=== PATIENT | male | born 1970 | race Caucasian/White ===

== ENCOUNTER → 2016-06-26 | Outpatient (CLI) | payer OTHER ==
[~2016-06-26] MED LIST: ACETAMINOPHEN325 M1; AMBIEN 10 MG TA10 MG PO; CARISOPRODOL 3350 MG PO; CENTRUM SILVER1 EAC2 PO; CENTRUM TABLET1 TAB; CO Q-10100 MG; COZAAR 50 MG TA50 M2 PO; DARVOCET-N 1001 EAC1; FENTANYL PA25 MCG/HR TP; FLEXERIL PO; HYDROCHLOROTHIA25 M2 PO; HYDROCODON-ACE1 EAC5 PO; HYDROCODON-ACE1 EAC7 PO; HYZAAR 100-251 EACH PO; LUMIGAN2.5 ML; OMEGA 3 1,0001 EACH PO; PERCOCET 5-3251 EACH; PRILOSEC20 MG PO; TIMOLOL; TIMOLOL MA0.25 %/5 M OP; TRAMADOL 50 MG50 MG PO; VALIUM5 MG PO; VITAMIN B-12100 MC1; ZOFRAN 4 MG ORAL4 MG PO; ZOFRAN ODT4 MG PO
== END ==
LOC: CAT 15:24
DX: R10.9 Unspecified abdominal pain (principal); R11.0 Nausea

== ENCOUNTER 2016-07-10 18:13 | Inpatient (IN) | payer OTHER ==
[~2016-07-10] VITALS: Ht 162.6 cm; Wt 135.2 kg
--- NOTE | ~2016-07-10 | P ---
[facility] [place] [address] PROCEDURE REPORT Name: SINDY TAN Room #: 308-P [facility] IN M.R.#: [id number] Admission: 07/11/16 Attend Phys: Yogesh Mendez DO Discharge: 07/13/16 Date of : 68 Report #: [id number] THIS REPORT FOR: //name// CC: Yogesh Marrero DATE OF SERVICE: 07/13/2016 PROCEDURES: Upper endoscopy and colonoscopy at [facility] 07/13/2016. INDICATIONS FOR PROCEDURE: A 46-year-old obese male who presents to the hospital with 3-4 weeks of nausea, vomiting, abdominal pain and diarrhea. CT was unremarkable. Stool studies were unrevealing and upper endoscopy and colonoscopy were recommended. ANESTHESIA: Monitored anesthesia care. Please see anesthesiologist's report for medications given during procedure and propofol was used for sedation. DESCRIPTION OF PROCEDURE: The patient was placed in left lateral decubitus position on the operating table and sedation was given. Sedation was adequate. No complications were noted. The upper adult Fujinon endoscope was introduced through the mouth into the esophagus and the stomach and down to the second portion of the duodenum and then carefully withdrawn. With inspection, the duodenum was normal. Stomach was normal in retroflexion. The esophagus was normal. Biopsies were taken from the second portion of the duodenum to assess for celiac disease. The procedure was then ended. The patient was turned and the adult Fujinon colonic endoscope was introduced through the anus and we moved through the entire colon. The entire colon was inspected. There were no mucosal abnormalities. There was 1 polyp approximately 2 x 3 mm in the ascending colon. This was biopsied. Random colon biopsies were taken for microscopic colitis. The colonoscope was withdrawn slowly with careful inspection of the colonic mucosa. There were internal hemorrhoids in the rectum and the procedure was then ended. Biopsies were taken for microscopic colitis. RECOMMENDATIONS: To await the biopsy results. Eat a high-fiber diet 25 grams a day. Continue hyoscyamine as needed. Recommend a trial of Bentyl as needed. Repeat colonoscopy in 5 years for surveillance purposes. We will advance his diet and the patient can be discharged from [facility]. He can follow up in our office. <ELECTRONICALLY SIGNED> By: Shahzad Gill MD 07/14/16 0908 [id number] 1708 Shahzad Gill MD /nt
--- NOTE | ~2016-07-10 | S ---
[facility] [place] [address] SURGICAL PATH RPT PROCEDURE Name: SINDY MCELROY Room #: 308-P DIS IN M.R.#: [id number] Admission: 07/11/16 Date of : 68 Discharge: 07/13/16 Report #: [id number] Path Case #: [id number] PATHOLOGY REPORT COLLECTION DATE: 07/13/2016 RECEIVED DATE: 07/15/2016 SUBMITTING PHYS: Dr. Shahzad Gill OTHER PHYS: Dr. Yogesh Marrero SPECIMEN(S) RECEIVED: A.Small bowel biopsies B.Bxs polyp ascending colon C.Random colon bxs * * * * * * * * * * * * FINAL DIAGNOSIS: A. Small bowel, endoscopic biopsy: - No diagnostic abnormalities present. B. Polyp, ascending colon, endoscopic biopsy: - Tubular adenoma. - Negative for high-grade dysplasia. C. Large intestine, random colon, endoscopic biopsy: - Mild non-specific changes (please see comment). COMMENT: Examination shows an occasional focus of cryptitis with a rare eosinophil. The lamina propria cellularity is mixed and is comprised of lymphocytes, abundant plasma cells, as well as a few eosinophils. Surface epithelial inflammation, ulceration, granulomata, viral inclusions, or parasitic organisms are not identified. Overall, the findings are non-specific, and may be due to an acute self-limited episode of colitis, or medication induced colitis. There is no dysplasia or malignancy present. There are no architectural abnormalities to suggest a chronic process. Please correlate clinically and follow-up as indicated. (IUV:mgr; d/t: 07/16/16) PATHOLOGIST: Charo Carnes M.D. REPORT ELECTRONICALLY SIGNED BY: Charo Carnes M.D. DATE/TIME: 07/16/2016 16:30 * * * * * * * * * * * * GROSS PATHOLOGY: A. Received in formalin labeled "Sindy Mcelroy, small bowel BX's," are 2 segments of muñiz soft tissue measuring 0.7 x 0.2 x 0.[address] [address] SURGICAL PATH RPT PROCEDURE Name: SINDY MCELROY Room #: 308-P [facility] IN M.R.#: [id number] Admission: 07/11/16 Date of : 68 Discharge: 07/13/16 Report #: [id number] Path Case #: [id number] aggregate dimensions and ranging from 0.2 to 0.5 cm in maximum dimension. The specimen is submitted entirely in cassette A1. B. Received in formalin labeled " Sindy Mcelroy BX's polyp ascending colon," is a segment of muñiz soft tissue measuring 0.2 x 0.1 x 0.1 cm in maximum dimension. The specimen is submitted entirely in cassette B1. C. Received in formalin labeled " Sindy Mcelroy Bx's random colon," are 10 segments of muñiz soft tissue measuring 2.3 x 0.2 x 0.2 cm in aggregate dimensions and ranging from 0.1 to 0.5 cm in maximum dimension. The specimen is submitted entirely in cassette C1. ([place]; 07/15/2016) CLINICAL HISTORY: Diarrhea/abdominal pain INITIAL CPT CODE(S): A; 03606 B; 16341 C; 71586 Professional services performed by [facility] at [facility] [address], [place] [address] Technical services performed by [facility] at [address] [place] [address], [address], [place] [address]. [facility] [address] [place] [address] PHONE: [phone] DIRECTOR: Daniel Leon M.D. * * * END OF REPORT * * *
[2016-07-10 18:22] VITALS: BP 152/87
[2016-07-10 18:59] LABS: ABSOLUTE NEUTROPHILS 9.9 thou/uL (1.4-8.2); BASOPHILS 1.5 % (0.0-2.0); EOSINOPHILS 3.6 % (0.0-3.0); HEMATOCRIT 41.4 % (42.0-52.0); HEMOGLOBIN 14.4 gm/dL (14.0-18.0); LYMPHOCYTES 20.1 % (24.0-44.0); MANUAL DIFF NO; MCH 34.1 pg (26.0-34.0); MCHC 34.8 g/dL (28.0-37.0); MCV 98.1 fL (80.0-100.0); MONOCYTES 7.4 % (1.0-8.0); PLATELET COUNT 274 thou/uL (150-400); POLYS 67.4 % (36.0-66.0); RBC 4.22 mil/uL (4.50-6.00); RDW 13.3 % (10.5-14.5); WBC 14.7 thou/uL (4.0-11.0)
[2016-07-10 19:02] LABS: CALCIUM 8.7 mg/dL (8.5-10.1); CREATININE 0.9 mg/dL (0.7-1.3); POTASSIUM 3.5 mmol/L (3.5-5.1)
[2016-07-10 19:07] LABS: ALBUMIN 3.6 g/dL (3.4-5.0); TOTAL BILIRUBIN 0.3 mg/dL (<0.1-1.0); TOTAL PROTEIN 7.1 g/dL (6.4-8.2)
[2016-07-10] MEDS ORDERED: ZANAFLEX4 MG PO (19:15)
[2016-07-10] MEDS ORDERED: LASIX 40 MG TAB40 M2 PO (19:16)
[2016-07-10] MEDS ORDERED: FLEXERIL PO (19:16)
[2016-07-10] MEDS ORDERED: CIPRO500 MG PO (19:16)
[2016-07-10] MEDS ORDERED: KLOR-CON 1010 MEQ PO (19:16)
[2016-07-10] MEDS ORDERED: MODAFINIL200 MG PO (19:17)
[2016-07-10] MEDS ORDERED: CYMBALTA20 MG PO (19:17)
[2016-07-10] MEDS ORDERED: HYOSCYAMINE0.125 MG PO (19:18)
[2016-07-10] MEDS ORDERED: TRAMADOL 50 MG50 MG PO (19:18)
[2016-07-10] MEDS ORDERED: [UNRECOGNIZED DRUG - OTHER] PO (19:20)
[2016-07-10] MEDS ORDERED: HYPROST1 EACH PO (19:20)
[2016-07-10] MEDS ORDERED: ACAI WEIGHT CO1 EACH PO (19:21)
[2016-07-10] MEDS ORDERED: [UNRECOGNIZED DRUG - OTHER] PO (19:21)
[2016-07-10] MEDS ORDERED: PROSTATE HEALT1 EAC1 PO (19:22)
[2016-07-10 21:08] VITALS: BP 90/59
[2016-07-11 03:13] VITALS: BP 139/83
[2016-07-11 05:15] LABS: HEMATOCRIT 39.9 % (42.0-52.0); MCH 34.9 pg (26.0-34.0); MCV 99.5 fL (80.0-100.0); RBC 4.01 mil/uL (4.50-6.00); RDW 13.7 % (10.5-14.5); WBC 12.3 thou/uL (4.0-11.0)
[2016-07-11 05:43] LABS: ALBUMIN 3.3 g/dL (3.4-5.0); CALCIUM 8.4 mg/dL (8.5-10.1); CREATININE 0.9 mg/dL (0.7-1.3); POTASSIUM 3.7 mmol/L (3.5-5.1); TOTAL BILIRUBIN 0.3 mg/dL (<0.1-1.0); TOTAL PROTEIN 6.4 g/dL (6.4-8.2)
[2016-07-11 08:34] VITALS: BP 118/67
[2016-07-11 16:14] VITALS: BP 134/64
[2016-07-11 20:00] VITALS: BP 124/64
[2016-07-12 04:00] VITALS: BP 134/77
[2016-07-12 06:26] LABS: ABSOLUTE NEUTROPHILS 8.5 thou/uL (1.4-8.2); BASOPHILS 0.6 % (0.0-2.0); HEMATOCRIT 41.6 % (42.0-52.0); HEMOGLOBIN 14.3 gm/dL (14.0-18.0); LYMPHOCYTES 15.7 % (24.0-44.0); MCH 34.3 pg (26.0-34.0); MCHC 34.3 g/dL (28.0-37.0); MCV 99.8 fL (80.0-100.0); PLATELET COUNT 237 thou/uL (150-400); POLYS 73.7 % (36.0-66.0); RBC 4.17 mil/uL (4.50-6.00); RDW 13.4 % (10.5-14.5); WBC 11.5 thou/uL (4.0-11.0)
[2016-07-12 06:35] LABS: MANUAL DIFF NO
[2016-07-12 06:36] LABS: CREATININE 0.7 mg/dL (0.7-1.3); POTASSIUM 3.6 mmol/L (3.5-5.1)
[2016-07-12 11:30] VITALS: BP 183/114
[2016-07-12 16:00] VITALS: BP 177/96
[2016-07-12 20:30] VITALS: BP 141/96
[2016-07-13 04:30] VITALS: BP 139/97
[2016-07-13 08:18] VITALS: BP 135/90
[2016-07-13] MEDS ORDERED: BENTYL 10 MG CA10 M1 PO (11:49)
[2016-07-13 12:13] VITALS: BP 135/90
[2016-07-13 13:34] VITALS: BP 135/90
== END 2016-07-13 13:33 | disposition home or self-care (01) | DRG 872 ==
LOC: ER 18:13 → EROBS 19:56 → 3N 19:56
PROVIDERS: Emergency Medicine; Family Medicine; Nurse Practitioner Family
PROC: 0DBK8ZX Excision of Ascending Colon, Via Natural or Artificial Opening Endoscopic, Diagnostic (ICD-10-PCS; principal; 2016-07-13)
PROC: 0DB98ZX Excision of Duodenum, Via Natural or Artificial Opening Endoscopic, Diagnostic (ICD-10-PCS; principal; 2016-07-13)
PROC: 0DBE8ZX Excision of Large Intestine, Via Natural or Artificial Opening Endoscopic, Diagnostic (ICD-10-PCS; principal; 2016-07-13)
DX: A41.9 Sepsis, unspecified organism (principal); Z68.43 Body mass index [BMI] 50.0-59.9, adult; A04.9 Bacterial intestinal infection, unspecified; K52.9 Noninfective gastroenteritis and colitis, unspecified; D12.2 Benign neoplasm of ascending colon; K64.8 Other hemorrhoids; Z96.653 Presence of artificial knee joint, bilateral; H54.0 Blindness, both eyes; E66.9 Obesity, unspecified; F17.210 Nicotine dependence, cigarettes, uncomplicated; I10 Essential (primary) hypertension; G56.03 Carpal tunnel syndrome, bilateral upper limbs; D72.829 Elevated white blood cell count, unspecified; Z71.6 Tobacco abuse counseling; Z87.11 Personal history of peptic ulcer disease; Z98.1 Arthrodesis status
CPT/HCPCS: 10094; 62110; 62900

== ENCOUNTER 2016-10-19 12:52 | Inpatient (IN) | payer OTHER ==
[~2016-10-19] VITALS: Ht 162.6 cm; Wt 131.5 kg
[~2016-10-19 12:52] MED LIST changes: +ACAI WEIGHT CO1 EACH PO; +BENTYL 10 MG CA10 M1 PO; +CIPRO500 MG PO; +CYMBALTA20 MG PO; +HYOSCYAMINE0.125 MG PO; +HYPROST1 EACH PO; +KLOR-CON 1010 MEQ PO; +LASIX 40 MG TAB40 M2 PO; +MODAFINIL200 MG PO; +PROSTATE HEALT1 EAC1 PO; +ZANAFLEX4 MG PO; +[UNRECOGNIZED DRUG - OTHER] PO; +[UNRECOGNIZED DRUG - OTHER] PO
[2016-10-19 12:57] VITALS: BP 148/73
[2016-10-19] MEDS ORDERED: HYDROCODONE-APA1 TA1 PO (13:19)
[2016-10-19 13:53] LABS: HEMATOCRIT 41.3 % (42.0-52.0); HEMOGLOBIN 14.3 gm/dL (14.0-18.0); MANUAL DIFF YES; MCH 34.3 pg (26.0-34.0); MCHC 34.6 g/dL (28.0-37.0); MCV 99.2 fL (80.0-100.0); PLATELET COUNT 254 thou/uL (150-400); RBC 4.16 mil/uL (4.50-6.00); RDW 13.8 % (10.5-14.5)
[2016-10-19 14:03] LABS: CALCIUM 8.8 mg/dL (8.5-10.1); POTASSIUM 3.9 mmol/L (3.5-5.1)
[2016-10-19 14:09] LABS: ALBUMIN 3.4 g/dL (3.4-5.0); TOTAL BILIRUBIN 0.4 mg/dL (<0.1-1.0)
[2016-10-19 14:22] LABS: ABSOLUTE NEUTROPHILS 18.3 thou/uL (1.4-8.2); TOTAL CELL COUNT 100
[2016-10-19 15:05] VITALS: BP 123/57
[2016-10-19 17:17] VITALS: BP 141/75
[2016-10-19 20:00] VITALS: BP 151/71
[2016-10-20 03:54] VITALS: BP 134/70
[2016-10-20 05:34] LABS: ABSOLUTE NEUTROPHILS 13.1 thou/uL (1.4-8.2); BASOPHILS 0.4 % (0.0-2.0); EOSINOPHILS 1.2 % (0.0-3.0); HEMATOCRIT 38.6 % (42.0-52.0); LYMPHOCYTES 13.7 % (24.0-44.0); MANUAL DIFF NO; MCH 33.9 pg (26.0-34.0); MCHC 33.6 g/dL (28.0-37.0); MCV 100.9 fL (80.0-100.0); MONOCYTES 7.6 % (1.0-8.0); PLATELET COUNT 228 thou/uL (150-400); POLYS 77.1 % (36.0-66.0); RBC 3.82 mil/uL (4.50-6.00); RDW 13.8 % (10.5-14.5); WBC 17.1 thou/uL (4.0-11.0)
[2016-10-20 05:44] LABS: CALCIUM 8.2 mg/dL (8.5-10.1); CREATININE 0.7 mg/dL (0.7-1.3); POTASSIUM 3.8 mmol/L (3.5-5.1)
[2016-10-20 09:00] VITALS: BP 157/102
[2016-10-20 16:34] VITALS: BP 111/57
[2016-10-20 20:46] VITALS: BP 132/71
[2016-10-21 07:35] VITALS: BP 164/113
[2016-10-21 09:44] LABS: ABSOLUTE NEUTROPHILS 11.5 thou/uL (1.4-8.2); BASOPHILS 1.1 % (0.0-2.0); EOSINOPHILS 1.4 % (0.0-3.0); HEMOGLOBIN 13.7 gm/dL (14.0-18.0); LYMPHOCYTES 13.4 % (24.0-44.0); MCH 34.7 pg (26.0-34.0); MCHC 34.2 g/dL (28.0-37.0); MCV 101.3 fL (80.0-100.0); MONOCYTES 5.4 % (1.0-8.0); PLATELET COUNT 249 thou/uL (150-400); POLYS 78.7 % (36.0-66.0); RBC 3.95 mil/uL (4.50-6.00); RDW 13.8 % (10.5-14.5); WBC 14.6 thou/uL (4.0-11.0)
[2016-10-21 09:46] LABS: MANUAL DIFF NO
[2016-10-21 09:53] LABS: CREATININE 0.8 mg/dL (0.7-1.3); POTASSIUM 4.2 mmol/L (3.5-5.1)
[2016-10-21 16:00] VITALS: BP 153/99
[2016-10-21 18:55] VITALS: BP 121/65
[2016-10-22 04:02] VITALS: BP 179/90
[2016-10-22 07:23] VITALS: BP 157/90
[2016-10-22 09:31] LABS: ABSOLUTE NEUTROPHILS 9.5 thou/uL (1.4-8.2); BASOPHILS 1.3 % (0.0-2.0); EOSINOPHILS 1.7 % (0.0-3.0); LYMPHOCYTES 13.9 % (24.0-44.0); MCHC 33.4 g/dL (28.0-37.0); MCV 101.7 fL (80.0-100.0); MONOCYTES 3.9 % (1.0-8.0); PLATELET COUNT 280 thou/uL (150-400); POLYS 79.2 % (36.0-66.0); RBC 4.13 mil/uL (4.50-6.00); RDW 13.4 % (10.5-14.5); WBC 11.9 thou/uL (4.0-11.0)
[2016-10-22 09:34] LABS: MANUAL DIFF NO
[2016-10-22 15:58] VITALS: BP 135/74
[2016-10-22 20:03] VITALS: BP 148/88
[2016-10-23 04:00] VITALS: BP 130/71
[2016-10-23 07:20] VITALS: BP 136/83
[2016-10-23] MEDS ORDERED: KEFLEX500 MG PO (11:58)
[2016-10-23 13:24] VITALS: BP 136/83
== END 2016-10-23 15:05 | disposition home or self-care (01) | DRG 871 ==
LOC: ER 12:52 → EROBS 15:05 → 4N 15:05 → ENTRNSPT 10-23 14:52 → EDTRNSPTSTS 10-23 14:55 → 4N 10-23 15:05
PROVIDERS: Family Medicine; Physician Assistant
DX: A41.9 Sepsis, unspecified organism (principal); N17.0 Acute kidney failure with tubular necrosis; L03.115 Cellulitis of right lower limb; I10 Essential (primary) hypertension; H54.8 Legal blindness, as defined in USA; G89.29 Other chronic pain; M54.9 Dorsalgia, unspecified; F17.210 Nicotine dependence, cigarettes, uncomplicated; Z96.653 Presence of artificial knee joint, bilateral; Z98.1 Arthrodesis status; Z79.899 Other long term (current) drug therapy
CPT/HCPCS: 10091

== ENCOUNTER 2016-11-01 05:53 | Inpatient (IN) | payer OTHER ==
[~2016-11-01] VITALS: Ht 162.6 cm; Wt 132.0 kg
--- NOTE | ~2016-11-01 | HC ---
[facility] [place] [address] CONSULTATION Name: SINDY TAN Room #: 306-P [facility] IN .R.#: [id number] Admission: 11/01/16 Attend Phys: Rick Coronado MD Discharge: Date of : 68 Report #: [id number] THIS REPORT FOR: //name// CC: Rick Marrero DATE OF SERVICE: 11/01/2016 REASON FOR CONSULTATION: I was asked to evaluate concerning right lower extremity cellulitis that has relapsed. HISTORY OF PRESENT ILLNESS: The patient is a 46-year-old with underlying hypertension, peripheral edema, legally blind was diagnosed with right lower extremity cellulitis on 10/19/2016. After a 4-day hospital stay, he was discharged on cephalexin. He finished the course of treatment earlier this week. Now with acute onset of worsening with increased pain, swelling and tenderness. No fever, chills or sweats. No nausea, vomiting, diarrhea, dysuria or frequency, brought back in to the hospital today for further evaluation. ALLERGIES: None. MEDICATIONS: Now include Zosyn and vancomycin. Other medications as noted on his MAR. PAST MEDICAL HISTORY: Blind, esophagitis, gastric ulcer, hypertension, carpal tunnel syndrome, status post surgery, lumbar stenosis, cataract surgery, bilateral total knee arthroplasties, pseudotumor cerebri, lumbar fusion. FAMILY HISTORY: Cancer, diabetes. SOCIAL HISTORY: Cigarette smoker, occasional alcohol. REVIEW OF SYSTEMS: Negative other than what is described above. PHYSICAL EXAMINATION: VITAL SIGNS: Afebrile, hemodynamically stable. GENERAL: He is alert, cooperative, pleasant, obese, blind. EXTREMITIES: cellulitis involving the right lower extremity from ankle to proximal calf. Exquisitely tender. No ulcerations. Tinea pedis. Pulses were adequate in his feet. Has 2+ lower extremity edema on the right, 1+ on the left. HEENT: Unremarkable other than being blind. NECK: Supple. LUNGS: Clear. HEART: Regular, without murmur. ABDOMEN: Obese, soft, nontender, no hepatosplenomegaly or mass. [facility] [address] [place] [address] CONSULTATION Name: SINDY TAN Room #: 306-P [facility] IN ..#: [id number] Admission: 11/01/16 Attend Phys: Rick Coronado MD Discharge: Date of : 68 Report #: [id number] LABORATORY STUDIES: Lactate 1.1, sodium 140, potassium 4.4, bicarbonate 31, creatinine 0.9. Hemoglobin 13.5, white count 21.9, platelet count 230,000. IMPRESSION: Relapse of right lower extremity cellulitis. I still suspect streptococcal infection. He has tinea pedis. He has peripheral edema that contributes. Would recommend ceftriaxone. Leg elevation. Treat tinea pedis. Once under reasonable control, we will arrange outpatient therapy. By: 1450 36 Cal Geronimo MD /jaiden
[~2016-11-01 05:53] MED LIST changes: +HYDROCODONE-APA1 TA1 PO; +KEFLEX500 MG PO
[2016-11-01 05:54] VITALS: BP 163/97
[2016-11-01 06:33] LABS: HEMATOCRIT 40.2 % (42.0-52.0); HEMOGLOBIN 13.5 gm/dL (14.0-18.0); MCH 33.9 pg (26.0-34.0); MCHC 33.6 g/dL (28.0-37.0); MCV 100.8 fL (80.0-100.0); RBC 3.98 mil/uL (4.50-6.00); RDW 13.3 % (10.5-14.5); WBC 21.9 thou/uL (4.0-11.0)
[2016-11-01 06:53] LABS: CALCIUM 9.2 mg/dL (8.5-10.1); CREATININE 0.9 mg/dL (0.7-1.3); POTASSIUM 4.4 mmol/L (3.5-5.1)
[2016-11-01 08:00] VITALS: BP 151/94
[2016-11-01 08:30] VITALS: BP 147/96
[2016-11-01] MEDS ORDERED: VALSARTAN-HCTZ1 EAC3 PO (08:59)
[2016-11-01 09:06] VITALS: BP 153/86
[2016-11-01 16:00] VITALS: BP 167/100
[2016-11-01 20:00] VITALS: BP 149/88
[2016-11-02 04:00] VITALS: BP 157/95
[2016-11-02 08:00] VITALS: BP 173/107
[2016-11-02 08:37] LABS: HEMATOCRIT 41.9 % (42.0-52.0); HEMOGLOBIN 14.1 gm/dL (14.0-18.0); MCHC 33.7 g/dL (28.0-37.0); MCV 100.9 fL (80.0-100.0); RBC 4.16 mil/uL (4.50-6.00); RDW 13.5 % (10.5-14.5); WBC 12.6 thou/uL (4.0-11.0)
[2016-11-02 08:44] LABS: CALCIUM 9.5 mg/dL (8.5-10.1); CREATININE 0.8 mg/dL (0.7-1.3); POTASSIUM 3.9 mmol/L (3.5-5.1)
[2016-11-02 16:00] VITALS: BP 155/94
[2016-11-02 20:10] VITALS: BP 166/92
[2016-11-03 04:15] VITALS: BP 159/97
[2016-11-03 08:00] VITALS: BP 159/97
[2016-11-03 09:44] LABS: HEMATOCRIT 40.5 % (42.0-52.0); HEMOGLOBIN 13.9 gm/dL (14.0-18.0); MCH 34.8 pg (26.0-34.0); MCHC 34.4 g/dL (28.0-37.0); MCV 101.1 fL (80.0-100.0); RBC 4.01 mil/uL (4.50-6.00); RDW 13.8 % (10.5-14.5); WBC 10.8 thou/uL (4.0-11.0)
[2016-11-03 09:55] LABS: CREATININE 0.9 mg/dL (0.7-1.3); POTASSIUM 3.5 mmol/L (3.5-5.1)
[2016-11-03 16:00] VITALS: BP 154/92
[2016-11-03 19:40] VITALS: BP 140/95
[2016-11-04 04:20] VITALS: BP 135/57
[2016-11-04 07:26] VITALS: BP 149/93
[2016-11-04 14:07] VITALS: BP 149/93
[2016-11-04 15:02] VITALS: BP 149/93
[2016-11-04 16:00] VITALS: BP 149/93
== END 2016-11-04 16:52 | disposition home or self-care (01) | DRG 872 ==
LOC: ER 05:53 → EROBS 07:04 → 4S 07:04 → 3N 15:19 → ENTRNSPT 11-04 16:11 → 3N 11-04 16:52
PROVIDERS: Emergency Medicine; Internal Medicine
DX: A41.9 Sepsis, unspecified organism (principal); L03.115 Cellulitis of right lower limb; Z96.653 Presence of artificial knee joint, bilateral; I10 Essential (primary) hypertension; F17.210 Nicotine dependence, cigarettes, uncomplicated; H54.8 Legal blindness, as defined in USA; I89.0 Lymphedema, not elsewhere classified; Z98.1 Arthrodesis status; Z79.899 Other long term (current) drug therapy; Z80.9 Family history of malignant neoplasm, unspecified; Z83.3 Family history of diabetes mellitus; Z98.49 Cataract extraction status, unspecified eye
CPT/HCPCS: 10096

== ENCOUNTER → 2016-11-05 | Outpatient (CLI) | payer OTHER ==
[~2016-11-05] VITALS: Ht 162.6 cm; Wt 132.0 kg
[~2016-11-05] MED LIST changes: +VALSARTAN-HCTZ1 EAC3 PO
[2016-11-05 11:26] VITALS: BP 150/95
== END ==
LOC: OPONC 06:25
DX: L03.115 Cellulitis of right lower limb (principal); A41.9 Sepsis, unspecified organism
CPT/HCPCS: 95000

== ENCOUNTER → 2016-11-06 | Outpatient (CLI) | payer OTHER ==
[2016-11-06 10:10] VITALS: BP 145/85
== END ==
LOC: OPONC 11-05 12:23
DX: A41.9 Sepsis, unspecified organism (principal); L03.115 Cellulitis of right lower limb
CPT/HCPCS: 95000

== ENCOUNTER → 2016-11-07 | Outpatient (CLI) | payer OTHER ==
[2016-11-07 10:15] VITALS: BP 132/87
== END ==
LOC: OPONC 06:25
DX: A41.9 Sepsis, unspecified organism (principal); L03.115 Cellulitis of right lower limb
CPT/HCPCS: 95000

== ENCOUNTER → 2016-11-08 | Outpatient (CLI) | payer OTHER ==
[2016-11-08 10:12] VITALS: BP 151/89
== END ==
LOC: OPONC 08:54
DX: L03.115 Cellulitis of right lower limb (principal)
CPT/HCPCS: 95000

== ENCOUNTER 2016-11-14 16:51 | Inpatient (IN) | payer OTHER ==
[~2016-11-14] VITALS: Ht 162.6 cm; Wt 137.0 kg
--- NOTE | ~2016-11-14 | H ---
[facility] [place] [address] HISTORY AND PHYSICAL Name: SINDY TAN Room #: 404-P ADM IN M.R.#: [id number] Admission: 11/14/16 Attend Phys: Cal Geronimo MD Discharge: Date of : 68 Report #: [id number] THIS REPORT FOR: //name// CC: Cal Marrero DATE OF SERVICE: 11/14/2016 REASON FOR ADMISSION: Recurrent cellulitis with lymphangitis. HISTORY OF PRESENT ILLNESS: The patient is a 46-year-old with hypertension and chronic peripheral edema who was diagnosed on 11/01/2016, with cellulitis and lymphangitis. Prior to this, he was hospitalized with the same issue on 10/19/2016. All involving the right lower extremity. I treated him with ceftriaxone through the end of last week, then switched to cephalexin. He went back to work a couple of days ago and noticed increased pain and swelling in his leg. He presents to the outpatient clinic where he had chills, temperature up to 102.5 degrees, and he was tachycardic. His right leg had erythema and swelling with tenderness up into his groin. ALLERGIES: None. MEDICATIONS: As noted on his MAR, now back on ceftriaxone. PAST MEDICAL HISTORY: He is blind. He has had esophagitis, gastric ulcer, hypertension, carpal tunnel syndrome, lumbar stenosis, cataract surgery, bilateral total knee arthroplasties, pseudotumor cerebri, and lumbar fusion. FAMILY HISTORY: Cancer and diabetes. SOCIAL HISTORY: He is a smoker of cigarettes. Occasional alcohol intake. REVIEW OF SYSTEMS: No GI, cardiopulmonary, or complaints. PHYSICAL EXAMINATION: VITAL SIGNS: Temperature 102.5 degrees, heart rate 107, and blood pressure 136/80. GENERAL: He was flushed, alert and cooperative. HEENT: Unremarkable other than being blind. CHEST: Clear. HEART: Regular. ABDOMEN: Soft and nontender. He is obese. EXTREMITIES: Right lower extremity had cellulitis from the ankle to the proximal calf along with tenderness in his medial thigh up to his groin. LABORATORY STUDIES: Hemoglobin 13.4, white count 20.9, platelet count 249,000, [address] [address] HISTORY AND PHYSICAL Name: SINDY TAN Room #: 404-P [facility] IN .R.#: [id number] Admission: 11/14/16 Attend Phys: Cal Geronimo MD Discharge: Date of : 68 Report #: [id number] 85% neutrophils, and 1% band. Sodium 138, potassium 3.4, bicarbonate 29, and creatinine 0.9. Liver function tests normal. IMPRESSION: A 46-year-old with recurring cellulitis and lymphangitis of the right lower extremity. He had relapsed while on cephalexin, having completed a prolong course of ceftriaxone. I still suspect we are dealing with streptococcal infection. He has associated mild anemia and hypokalemia. Previous imaging studies failed to identify any deep venous thrombosis. He has no other history to suggest autoimmune disorder or immunosuppression. Plan will be to give IV fluids tonight. We will restart IV antibiotic therapy with a combination of ceftriaxone and clindamycin. Once stabilized, we will return to the outpatient setting to resume his antibiotics. He will also elevate the leg and once stabilized, continue with compression. We will replace his potassium, recheck his potassium level in the a.m. Follow his hemoglobin for his 13.4. <ELECTRONICALLY SIGNED> By: Cal Geronimo MD 11/15/16931 22 58 Cal Geronimo MD /nt
--- NOTE | ~2016-11-14 | D ---
[facility] [place] [address] DISCHARGE SUMMARY Name: SINDY TAN Room #: 404-P [facility] IN M.R.#: [id number] Admission: 11/14/16 Attend Phys: Cal Geronimo MD Discharge: 11/15/16 Date of : 68 Report #: [id number] THIS REPORT FOR: //name// CC: Cal Marrero DATE OF SERVICE: 11/15/2016 REASON FOR ADMISSION: Recurring right lower extremity cellulitis and lymphangitis with fever and leukocytosis. HOSPITAL COURSE: The patient was admitted, placed on IV fluids, IV antibiotic therapy, leg elevation. Within 24 hours, he was afebrile with improvement in his right leg. This was deemed treatable as an outpatient with outpatient IV antibiotic therapy. He was no longer toxic. He had a midline catheter placed and was dismissed to follow up in the outpatient clinic where I would be able to follow him on a frequent basis. DISCHARGE DIAGNOSES: 1. Recurrent cellulitis, right lower extremity with lymphangitis. Failed outpatient oral therapy. 2. Anemia. 3. Hypokalemia. 4. Chronic venous stasis, right lower extremity. PLAN: Continue IV antibiotic therapy with ceftriaxone. Follow up outpatient clinic during infusions. Duration of therapy will be determined by his response. Continue leg elevation and compression as appropriate. DISCHARGE MEDICATIONS: Ceftriaxone 2 grams IV q.24 hours, duloxetine 20 mg a day, hydrochlorothiazide 25 mg a day, losartan 100 mg a day, modafinil 200 mg daily, pantoprazole 40 mg daily, potassium 10 mEq daily, zolpidem tartrate 10 mg at bedtime p.r.n., hydrocodone 7.5 mg 1 tab p.o. q.6 hours p.r.n. pain. <ELECTRONICALLY SIGNED> By: Cal Geronimo MD 11/17/16 1010 1349 1413 Cal Geronimo MD /nt
[2016-11-14 18:00] VITALS: BP 136/80
[2016-11-14 18:46] LABS: HEMATOCRIT 38.8 % (42.0-52.0); HEMOGLOBIN 13.4 gm/dL (14.0-18.0); MCH 33.9 pg (26.0-34.0); MCHC 34.6 g/dL (28.0-37.0); MCV 98.1 fL (80.0-100.0); PLATELET COUNT 249 thou/uL (150-400); RBC 3.96 mil/uL (4.50-6.00); RDW 13.4 % (10.5-14.5); WBC 20.9 thou/uL (4.0-11.0)
[2016-11-14 18:47] LABS: MANUAL DIFF YES
[2016-11-14 18:56] LABS: CALCIUM 9.1 mg/dL (8.5-10.1); CREATININE 0.9 mg/dL (0.7-1.3); POTASSIUM 3.4 mmol/L (3.5-5.1)
[2016-11-14 19:01] LABS: ALBUMIN 3.4 g/dL (3.4-5.0); TOTAL BILIRUBIN 0.4 mg/dL (<0.1-1.0)
[2016-11-14 19:07] LABS: TOTAL CELL COUNT 100
[2016-11-14 20:47] VITALS: BP 140/69
[2016-11-15 06:15] VITALS: BP 162/92
[2016-11-15 06:55] LABS: CALCIUM 8.6 mg/dL (8.5-10.1); CREATININE 0.8 mg/dL (0.7-1.3); POTASSIUM 3.5 mmol/L (3.5-5.1)
[2016-11-15 07:52] VITALS: BP 130/74
[2016-11-15 12:03] LABS: HEMATOCRIT 40.4 % (42.0-52.0); HEMOGLOBIN 13.2 gm/dL (14.0-18.0); MCHC 32.6 g/dL (28.0-37.0); MCV 101.3 fL (80.0-100.0); PLATELET COUNT 229 thou/uL (150-400); RBC 3.99 mil/uL (4.50-6.00); RDW 13.7 % (10.5-14.5); WBC 18.2 thou/uL (4.0-11.0)
[2016-11-15 12:05] LABS: MANUAL DIFF YES
[2016-11-15 12:33] LABS: ABSOLUTE NEUTROPHILS 15.7 thou/uL (1.4-8.2); PLATELET ESTIMATE NORMAL; TOTAL CELL COUNT 100
[2016-11-15 14:18] VITALS: BP 130/74
[2016-11-15 16:25] VITALS: BP 133/78
[2016-11-15 16:41] VITALS: BP 133/78
== END 2016-11-15 18:16 | disposition home or self-care (01) | DRG 603 ==
LOC: OPONC 16:51 → 4N 18:22 → ENTRNSPT 11-15 17:48 → 4N 11-15 18:16
PROVIDERS: Specialist
DX: L03.115 Cellulitis of right lower limb (principal); D64.9 Anemia, unspecified; E87.6 Hypokalemia; Z96.653 Presence of artificial knee joint, bilateral; I87.8 Other specified disorders of veins; F17.210 Nicotine dependence, cigarettes, uncomplicated; I10 Essential (primary) hypertension; G56.00 Carpal tunnel syndrome, unspecified upper limb; Z79.899 Other long term (current) drug therapy; Z98.49 Cataract extraction status, unspecified eye; Z83.3 Family history of diabetes mellitus; Z80.9 Family history of malignant neoplasm, unspecified
CPT/HCPCS: 10790; 27001

== ENCOUNTER → 2016-11-16 | Outpatient (CLI) | payer OTHER | LOC: OPONC 05:03 | DX: L03.115 Cellulitis of right lower limb (principal) | CPT/HCPCS: 95000 ==

== ENCOUNTER → 2016-11-17 | Outpatient (CLI) | payer OTHER | LOC: OPONC 05:06 | DX: L03.115 Cellulitis of right lower limb (principal) | CPT/HCPCS: 95000 ==

== ENCOUNTER → 2016-11-18 | Outpatient (CLI) | payer OTHER ==
[2016-11-18 11:12] LABS: HEMATOCRIT 38.8 % (42.0-52.0); HEMOGLOBIN 13.2 gm/dL (14.0-18.0); MCHC 34.1 g/dL (28.0-37.0); MCV 99.6 fL (80.0-100.0); RBC 3.9 mil/uL (4.50-6.00); RDW 13.3 % (10.5-14.5); WBC 11.7 thou/uL (4.0-11.0)
[2016-11-18 11:24] LABS: ALBUMIN 3.1 g/dL (3.4-5.0); CALCIUM 9.1 mg/dL (8.5-10.1); CREATININE 0.9 mg/dL (0.7-1.3); POTASSIUM 3.4 mmol/L (3.5-5.1); TOTAL BILIRUBIN 0.2 mg/dL (<0.1-1.0); TOTAL PROTEIN 7.1 g/dL (6.4-8.2)
[2016-11-18 16:45] VITALS: BP 150/106
== END ==
LOC: OPONC 07:04
PROVIDERS: Specialist
DX: L03.115 Cellulitis of right lower limb (principal)
CPT/HCPCS: 95000

== ENCOUNTER → 2016-11-19 | Outpatient (CLI) | payer OTHER ==
[2016-11-19 10:10] VITALS: BP 147/93
== END ==
LOC: OPONC 00:46
DX: L03.115 Cellulitis of right lower limb (principal)
CPT/HCPCS: 95000

== ENCOUNTER → 2016-11-20 | Outpatient (CLI) | payer OTHER ==
[2016-11-20 10:10] VITALS: BP 139/82
== END ==
LOC: OPONC 00:46
DX: L03.115 Cellulitis of right lower limb (principal)
CPT/HCPCS: 95000

== ENCOUNTER → 2016-11-21 | Outpatient (CLI) | payer OTHER ==
[2016-11-21 10:30] VITALS: BP 137/81
== END ==
LOC: OPONC 00:46
DX: L03.115 Cellulitis of right lower limb (principal)
CPT/HCPCS: 95000

== ENCOUNTER → 2016-11-22 | Outpatient (CLI) | payer OTHER ==
[~2016-11-22] MED LIST changes: +METOPROLOL ER-1 EACH PO
[2016-11-22 10:30] VITALS: BP 144/76
== END ==
LOC: OPONC 00:46
DX: L03.115 Cellulitis of right lower limb (principal)
CPT/HCPCS: 95000

== ENCOUNTER → 2016-11-23 | Outpatient (CLI) | payer OTHER | LOC: OPONC 05:15 | DX: L03.115 Cellulitis of right lower limb (principal) | CPT/HCPCS: 95000 ==

== ENCOUNTER → 2016-11-24 | Outpatient (CLI) | payer OTHER | LOC: OPONC 04:46 | DX: L03.115 Cellulitis of right lower limb (principal) | CPT/HCPCS: 95000 ==

== ENCOUNTER → 2016-11-25 | Outpatient (CLI) | payer OTHER ==
[2016-11-25 10:26] LABS: HEMATOCRIT 39.6 % (42.0-52.0); HEMOGLOBIN 13.9 gm/dL (14.0-18.0); MCH 34.5 pg (26.0-34.0); MCHC 35.1 g/dL (28.0-37.0); MCV 98.4 fL (80.0-100.0); RBC 4.02 mil/uL (4.50-6.00); RDW 13.3 % (10.5-14.5); WBC 11.9 thou/uL (4.0-11.0)
[2016-11-25 11:07] LABS: ALBUMIN 3.4 g/dL (3.4-5.0); CALCIUM 8.8 mg/dL (8.5-10.1); CREATININE 0.7 mg/dL (0.7-1.3); POTASSIUM 3.4 mmol/L (3.5-5.1); TOTAL BILIRUBIN 0.2 mg/dL (<0.1-1.0); TOTAL PROTEIN 7.5 g/dL (6.4-8.2)
== END ==
LOC: OPONC 00:57
PROVIDERS: Specialist
DX: L03.115 Cellulitis of right lower limb (principal)
CPT/HCPCS: 95000

== ENCOUNTER → 2016-11-26 | Outpatient (CLI) | payer OTHER ==
[2016-11-26 13:31] VITALS: BP 181/93
== END ==
LOC: OPONC 00:48
DX: L03.115 Cellulitis of right lower limb (principal)
CPT/HCPCS: 95000

== ENCOUNTER → 2016-11-27 | Outpatient (CLI) | payer OTHER ==
[~2016-11-27] MED LIST changes: +DOXYCYCLINE 10100 MG PO
[2016-11-27 09:55] VITALS: BP 149/82
== END ==
LOC: OPONC 00:43
DX: L03.115 Cellulitis of right lower limb (principal)
CPT/HCPCS: 95000

== ENCOUNTER → 2016-11-28 | Outpatient (CLI) | payer OTHER ==
[2016-11-28 09:55] VITALS: BP 152/85
== END ==
LOC: OPONC 01:25
DX: L03.115 Cellulitis of right lower limb (principal)
CPT/HCPCS: 95000

== ENCOUNTER → 2016-11-29 | Outpatient (CLI) | payer OTHER ==
[2016-11-29 13:43] VITALS: BP 158/98
== END ==
LOC: OPONC 00:31
DX: L03.115 Cellulitis of right lower limb (principal)
CPT/HCPCS: 95000

== ENCOUNTER → 2016-11-30 | Outpatient (CLI) | payer OTHER | LOC: OPONC 05:01 | DX: L03.115 Cellulitis of right lower limb (principal) | CPT/HCPCS: 95000 ==

== ENCOUNTER → 2016-12-01 | Outpatient (CLI) | payer OTHER | LOC: OPONC 12:27 | DX: L03.115 Cellulitis of right lower limb (principal) | CPT/HCPCS: 95000 ==

== ENCOUNTER → 2016-12-02 | Outpatient (CLI) | payer OTHER ==
[2016-12-02 10:20] LABS: HEMATOCRIT 41.8 % (42.0-52.0); HEMOGLOBIN 14.1 gm/dL (14.0-18.0); MCH 33.5 pg (26.0-34.0); MCHC 33.8 g/dL (28.0-37.0); MCV 99.1 fL (80.0-100.0); RBC 4.21 mil/uL (4.50-6.00); RDW 13.5 % (10.5-14.5); WBC 11.1 thou/uL (4.0-11.0)
[2016-12-02 10:36] VITALS: BP 157/91
[2016-12-02 10:40] LABS: ALBUMIN 3.6 g/dL (3.4-5.0); CALCIUM 9.5 mg/dL (8.5-10.1); POTASSIUM 3.5 mmol/L (3.5-5.1); TOTAL BILIRUBIN 0.2 mg/dL (<0.1-1.0); TOTAL PROTEIN 7.3 g/dL (6.4-8.2)
== END ==
LOC: OPONC 01:41
PROVIDERS: Specialist
DX: L03.115 Cellulitis of right lower limb (principal)
CPT/HCPCS: 95000

== ENCOUNTER → 2016-12-05 | Outpatient (CLI) | payer OTHER ==
[2016-12-05 09:35] VITALS: BP 150/99
== END ==
LOC: OPONC 00:41
DX: L03.115 Cellulitis of right lower limb (principal)
CPT/HCPCS: 91016

== ENCOUNTER → 2016-12-11 | Outpatient (CLI) | payer OTHER ==
[2016-12-11 09:33] VITALS: BP 167/82
[2016-12-11 09:33] LABS: HEMATOCRIT 44.7 % (42.0-52.0); HEMOGLOBIN 15.3 gm/dL (14.0-18.0); MCH 33.7 pg (26.0-34.0); MCHC 34.3 g/dL (28.0-37.0); MCV 98.1 fL (80.0-100.0); RBC 4.56 mil/uL (4.50-6.00); RDW 13.5 % (10.5-14.5); WBC 15.3 thou/uL (4.0-11.0)
== END ==
LOC: OPONC 00:19
PROVIDERS: Specialist
DX: L03.115 Cellulitis of right lower limb (principal)
CPT/HCPCS: 91016

== ENCOUNTER 2017-08-14 07:24 | Inpatient (IN) | payer OTHER ==
[~2017-08-14] VITALS: Ht 162.6 cm; Wt 140.6 kg
--- NOTE | ~2017-08-14 | PATH ---
[facility] [place] [address] PATHOLOGY RPT PROCEDURE Name: SINDY MCELROY Room #: 451-P [facility] IN M.R.#: [id number] Admission: 08/29/17 Date of : 68 Discharge: 08/30/17 Report #: [id number] Path Case #: [id number] [facility] Accession Number: [id number] . 01 Material submitted: . LAP SLEEVE GASTRECTOMY . 01 Clinical history: . Morbid obesity . 02 Diagnosis: Stomach, laparoscopic sleeve gastrectomy: - Portion of unremarkable gastric wall and mucosa. (MAP:[facility]; 09/01/2017) QMS/09/01/2017 . 02 Electronically signed: . Ramses Corea MD, Pathologist NPI- [id number] . 01 Gross description: . The specimen is received in formalin, labeled "Sindy Mcelroy, lap sleeve gastrectomy" and consists of a segment of gastrointestinal tissue closed with a line of zoey measuring 23.0 x 5.8 cm. The serosa is pink-muñiz and shiny. Opening the specimen reveals a pink-muñiz mucosa with multiple possible nodules scattered across the entire mucosa ranging from 0.2 cm to 0.4 cm. No additional mass lesions are identified. [employer] sections are submitted as follows: . A1: Nodules A2-A3: Us Marketing Director mucosa ([facility]; 08/29/2017) SYU/SYU . 02 Pathologist provided ICD-10: E66.01 . 02 CPT . 766361 Performed at: [address], [place] [id number] MD Luis Gama MD Phone: [phone] Performed at: [address] [id number] MD Charo Carnes MD Phone: [phone]
--- NOTE | ~2017-08-14 | O ---
[facility] [place] [address] OPERATIVE REPORT Name: SINDY TAN Room #: 451-P [facility] IN M.R.#: [id number] Admission: 08/29/17 Attend Phys: Richar Solorio MD, F Discharge: 08/30/17 Date of : 68 Report #: [id number] THIS REPORT FOR: //name// CC: Ned Solorio DATE OF SERVICE: 08/29/2017 SURGEON: Richar Solorio M.D. SODA JERKER: Remi Manning M.D. PREOPERATIVE DIAGNOSES: 1. Morbid obesity. 2. Hypertension. 3. Migraine headaches. 4. Arthritis. 5. Pseudotumor cerebri. 6. Legally blind. 7. Morbid obesity (body mass index 53). POSTOPERATIVE DIAGNOSES: 1. Morbid obesity. 2. Hypertension. 3. Migraine headaches. 4. Arthritis. 5. Pseudotumor cerebri. 6. Legally blind. 7. Morbid obesity (body mass index 53). PROCEDURE: Laparoscopic sleeve gastrectomy with esophagogastroduodenoscopy. ANESTHESIA: General endotracheal anesthesia and local anesthetic. ESTIMATED BLOOD LOSS: 5 mL. SPECIMEN: Lateral stomach. COMPLICATIONS: None appreciated. INDICATIONS FOR PROCEDURE: This is a 47-year-old legally blind male patient of Dr. Ned Marrero, who stands 5 feet 4 inches and weight 310 pounds at his last office visit with a BMI of 53.3. He has had difficulty with his weight his entire life. His maximum weight is 335 pounds. He has tried numerous weight loss programs and plans including specialized diets and exercises. He has numerous associated comorbid conditions. He has been cleared from a [facility] [email or web address] [address] OPERATIVE REPORT Name: SINDY TAN Room #: 451-P [facility] IN ..#: [id number] Admission: 08/29/17 Attend Phys: Richar Solorio MD, F Discharge: 08/30/17 Date of : 68 Report #: [id number] multidisciplinary standpoint for bariatric surgery. He presents today for laparoscopic sleeve gastrectomy with EGD. OPERATIVE FINDINGS: On EGD, the patient's esophagus was normal down to the GE junction and Z-line measured at 40 cm at the teeth. There was no evidence for hiatal hernia. The stomach and duodenum to the third portion showed no polyps, masses, diverticula or ulcers. On retroflexion of the scope, a hiatal hernia was not appreciated. Laparoscopically, the patient had a mildly enlarged liver without jemal steatohepatitis. The stomach was enlarged as expected. No other significant intra-abdominal pathology was seen. The gastric sleeve staple line was started at 4 cm lateral/proximal to the pylorus and located 3 cm lateral to the incisura of the stomach and 1 cm lateral to the GE junction. After stapling off the stomach, immediately after applying 14 mL of Tisseel to the gastric sleeve staple line, the leak test was negative. No air bubbles were seen forming within the Tisseel immediately after its application with insufflation of air into the stomach. The excised stomach held 1000 mL of fluid. At the conclusion of the operation, the sponge, needle and instrument counts were correct. DESCRIPTION OF PROCEDURE IN DETAIL: After the benefits and risks of the procedure were explained to the patient which include but are not limited to risks of bleeding, infection, postoperative pain, postoperative expectations and risks of DVT and pulmonary embolus, informed consent was obtained. The patient was identified in the preoperative holding area. The patient was given IV antibiotics as documented in the chart in line with SCIP protocol. The patient was then taken to the operating room and was placed in the supine position. The patient was given IV sedation and was intubated without incident. SCDs were placed on the patient's bilateral lower extremities prior to induction of anesthesia. The patient had been placed in the modified low lying dorsal lithotomy position in stirrups on the beanbag. The beanbag and the patient were taped to the bed to secure the patient. A time-out was then performed to correctly identify the patient and procedure. An orogastric tube was placed by anesthesia. A bite block was placed and the fiberoptic EGD scope was passed into the patient's oropharynx, down the esophagus, into the stomach, and into the third portion of the duodenum. Findings are as noted above. The scope was slowly withdrawn into the antrum and the scope was retroflexed. The hiatus was visualized. The scope was then straightened and the end of the gastroscope was placed at the pylorus. The stomach was decompressed with the scope. The patient's abdomen was then prepped and draped in the standard sterile fashion with surgical prep. Local anesthetic was infiltrated into the skin and subcutaneous tissue in the left supraumbilical area where a sharp #15-blade scalpel was used to make a 5-mm incision. The 5-mm Visiport was placed [address] [address] OPERATIVE REPORT Name: SINDY TAN Room #: 451-P [facility] IN .R.#: [id number] Admission: 08/29/17 Attend Phys: Richar Solorio MD, F Discharge: 08/30/17 Date of : 68 Report #: [id number] intraperitoneally with the 5-mm 0-degree angled laparoscope. Pneumoperitoneum was then achieved with insufflation of carbon dioxide to 15 mmHg. A 5-mm 30-degree angled laparoscope was then inserted. The 15-mm port was placed in the right supraumbilical area after local anesthetic was infiltrated into the skin and subcutaneous tissue and an appropriately sized incision was made. Two additional 5 mm ports were placed in the left abdomen after local anesthetic was infiltrated and incisions were made. All ports were placed under direct visualization. The patient was then placed in reverse Trendelenburg position. Local anesthetic was infiltrated into the skin and subcutaneous tissue in the subxiphoid area and a 5-mm incision was made through which a 5-mm obturator was passed into the abdominal cavity through the fascia to create a passageway for the Viv liver retractor. The retractor was placed to retract the liver anteriorly. The retractor was held in place with the [employer] Reviewer apparatus. The gastrosplenic ligament and short gastric vessels were then divided using the ultrasonic dissector with appropriate traction. Bleeding points were made hemostatic with the ultrasonic dissector. Dissection was carried proximally up to the left ya of the diaphragm. The distal end point of dissection was then measured at 4 cm proximal to the pylorus. The gastrocolic ligament was dissected to that level. The stomach was then rotated medially to visualize any posterior attachments/adhesions to the stomach. The adhesions were dissected with a combination of sharp dissection and judicious use of the ultrasonic dissector. The endoscope was then slightly withdrawn to place it along the lesser curvature of the stomach. Suction was applied to the orogastric tube prior to its removal to finally decompress the stomach. The endoscope was left in place as a 34-Gibraltarian bougie. The gastric sleeve was then created. Two black loads of the powered endoscopic BASILIA stapler buttressed with Carolyn-Strips were used to staple and divide the stomach 4 cm proximal to the pylorus. Additional green loads buttressed with Carolyn-strips were used to staple off the remainder of the stomach using the endoscope as the bougie. Care was taken to ensure that greater than 3 cm of space was present between the incisura and the staple line. The stomach was fully transected and placed in the right upper quadrant of the abdomen for later removal. The staple line of the sleeve was then clipped with Hemoclips distally x 3 at the staple line to provide hemostasis. 14 mL of Tisseel was applied to the entire length of the staple line with the WOWIOspray aerosolizer to fully ensure hemostasis, decrease the risk of leak, and to help check for a leak. The leak test was performed next. The sleeve was insufflated with the endoscope, which was slowly withdrawn. No air bubbles were seen in the Tisseel laparoscopically. Endoluminally, no bleeding was seen. The stomach was fully decompressed and the scope was slowly withdrawn. The Viv liver retractor was then loosened from the [employer] Appeals Reviewer apparatus and it was removed without difficulty. [address] [address] OPERATIVE REPORT Name: BRITNEYSINDY RIVERA Room #: 451-P [facility] IN M.R.#: [id number] Admission: 08/29/17 Attend Phys: Richar Solorio MD, F Discharge: 08/30/17 Date of : 68 Report #: [id number] The stomach was then removed from the patient's body through the 15-mm port under direct visualization. A small amount stretching of the fascia was required to create an opening large enough for removal of the stomach. After its removal, the 15-mm port site fascial opening was closed with an 0-PDS suture using the Farshad-Saundra laparoscopic fascial closure device. All ports were removed after the abdominal cavity was desufflated. The fascial suture was tied under laparoscopic visualization to ensure no incorporation of intraabdominal content. Interrupted subcuticular 4-0 Monocryl sutures and Dermabond were used to close all skin incisions. The patient tolerated the procedure well. The patient was awakened, extubated and taken to the recovery room in stable condition with no apparent intraoperative complications. <ELECTRONICALLY SIGNED> By: Richar Solorio MD, FACS 09/01/17 [id number] Richar Solorio MD, FACS /nt
[2017-08-25] MEDS ORDERED: NORCO 5-325 TA1 EACH PO (15:33)
[2017-08-25] MEDS ORDERED: TOPROL XL25 MG PO (15:58)
[2017-08-29 07:41] LABS: CALCIUM 9.2 mg/dL (8.5-10.1); POTASSIUM 3.7 mmol/L (3.5-5.1)
[2017-08-29 07:51] VITALS: BP 144/93
[2017-08-29] MEDS ORDERED: LOPRESSOR25 PO (09:46)
[2017-08-29 16:45] VITALS: BP 143/70
[2017-08-29 19:20] VITALS: BP 138/63
[2017-08-30 02:54] VITALS: BP 92/36
[2017-08-30 04:33] LABS: ABSOLUTE NEUTROPHILS 14.4 thou/uL (1.4-8.2); BASOPHILS 0.4 % (0.0-2.0); EOSINOPHILS 0.5 % (0.0-3.0); HEMATOCRIT 42.7 % (42.0-52.0); HEMOGLOBIN 14.8 gm/dL (14.0-18.0); MCH 34.8 pg (26.0-34.0); MCHC 34.6 g/dL (28.0-37.0); MCV 100.6 fL (80.0-100.0); MONOCYTES 5.6 % (1.0-8.0); PLATELET COUNT 245 thou/uL (150-400); POLYS 82.5 % (36.0-66.0); RBC 4.24 mil/uL (4.50-6.00); RDW 13.5 % (10.5-14.5); WBC 17.4 thou/uL (4.0-11.0)
[2017-08-30 04:50] LABS: CALCIUM 8.5 mg/dL (8.5-10.1); CREATININE 0.9 mg/dL (0.7-1.3); POTASSIUM 3.4 mmol/L (3.5-5.1)
[2017-08-30 07:48] VITALS: BP 186/94
[2017-08-30 12:54] VITALS: BP 186/94
== END 2017-08-30 14:00 | disposition home or self-care (01) | DRG 621 ==
LOC: PRE 07:24 → TBA 08-29 05:30 → PRE 08-29 09:58 → 4W 08-29 14:09
PROVIDERS: Surgery
PROC: 0DB64Z3 Excision of Stomach, Percutaneous Endoscopic Approach, Vertical (ICD-10-PCS; principal; 2017-08-29)
PROC: 0DJ08ZZ Inspection of Upper Intestinal Tract, Via Natural or Artificial Opening Endoscopic (ICD-10-PCS; principal; 2017-08-29)
DX: E66.01 Morbid (severe) obesity due to excess calories (principal); G47.33 Obstructive sleep apnea (adult) (pediatric); I10 Essential (primary) hypertension; G43.909 Migraine, unspecified, not intractable, without status migrainosus; M19.90 Unspecified osteoarthritis, unspecified site; K21.9 Gastro-esophageal reflux disease without esophagitis; G93.2 Benign intracranial hypertension; H54.8 Legal blindness, as defined in USA; Z83.3 Family history of diabetes mellitus; Z68.43 Body mass index [BMI] 50.0-59.9, adult; Z79.899 Other long term (current) drug therapy
CPT/HCPCS: 10047; 50010; 50101; 50222; 50249; 50386; 50555; 50739; 50740; 50962; 51436; 51437; 52182; 52265; 53307; 53311; 54022; 54118; 55245; 56462; 56525; 56526; 57092; 62110; 62900; 70005

== ENCOUNTER 2019-03-15 11:28 | Emergency (ER) | payer OTHER ==
[~2019-03-15] VITALS: Ht 162.6 cm; Wt 104.3 kg
[~2019-03-15 11:28] MED LIST changes: +LOPRESSOR25 PO; +MIRALAX17 GM PO; +NORCO 5-325 TA1 EACH PO; +PROMS25 WY RECTAL; +REGLAN 10 MG TA10 MG PO; +TOPROL XL25 MG PO
[2019-03-15] MEDS ORDERED: NORFLEX100 MG PO (13:21)
[2019-03-15] MEDS ORDERED: PREDNISONE 10 M10 MG PO (13:21)
[2019-03-15 13:35] VITALS: BP 171/106
== END 2019-03-15 13:35 | disposition home or self-care (01) ==
LOC: ER 11:28
DX: M54.9 Dorsalgia, unspecified (principal); M54.31 Sciatica, right side; I10 Essential (primary) hypertension; G43.909 Migraine, unspecified, not intractable, without status migrainosus; G47.30 Sleep apnea, unspecified; E66.9 Obesity, unspecified; F17.210 Nicotine dependence, cigarettes, uncomplicated; Z95.0 Presence of cardiac pacemaker; Z96.653 Presence of artificial knee joint, bilateral

== ENCOUNTER → 2019-04-01 | Outpatient (CLI) | payer OTHER ==
[~2019-04-01] MED LIST changes: +NORFLEX100 MG PO; +PREDNISONE 10 M10 MG PO
== END ==
LOC: MRI 14:12
DX: M51.36 Other intervertebral disc degeneration, lumbar region (principal); M47.817 Spondylosis without myelopathy or radiculopathy, lumbosacral region; M48.07 Spinal stenosis, lumbosacral region; M71.38 Other bursal cyst, other site; M25.78 Osteophyte, vertebrae

== ENCOUNTER → 2019-09-03 | Outpatient (CLI) | payer OTHER | LOC: LAB 08:00 | PROVIDERS: ATTEND Neuromusculoskeletal Medicine & OMM | DX: R05 Cough (principal); J34.89 Other specified disorders of nose and nasal sinuses; R09.81 Nasal congestion; Z20.828 Contact with and (suspected) exposure to other viral communicable diseases ==

== ENCOUNTER → 2019-09-30 | Outpatient (CLI) | payer OTHER | LOC: LAB 08:40 | PROVIDERS: ATTEND Neuromusculoskeletal Medicine & OMM | DX: Z20.828 Contact with and (suspected) exposure to other viral communicable diseases (principal); R51 Headache; R09.81 Nasal congestion ==

== ENCOUNTER → 2020-08-24 | Outpatient (CLI) | payer OTHER ==
[~2020-08-24] VITALS: Ht 162.6 cm; Wt 102.1 kg
[~2020-08-24] MED LIST changes: +COLESTID1 GM PO; +HYDROCHLOROTHIA25 M1 PO; +LOSARTAN POTAS100 MG PO; +MAXALT10 MG PO; +NEURONTIN 300M300 M2 PO; +OMEPRAZOLE40 MG PO; +TIZANIDINE HCL2 M1 PO; +TOPROL XL100 MG PO
[2020-08-24 14:48] VITALS: BP 131/87
== END ==
LOC: PAIN 11:09
PROVIDERS: ATTEND Anesthesiology Pain Medicine
DX: M47.817 Spondylosis without myelopathy or radiculopathy, lumbosacral region (principal); I10 Essential (primary) hypertension; E66.01 Morbid (severe) obesity due to excess calories; F17.200 Nicotine dependence, unspecified, uncomplicated; F19.20 Other psychoactive substance dependence, uncomplicated; Z72.89 Other problems related to lifestyle; Z79.899 Other long term (current) drug therapy; Z79.891 Long term (current) use of opiate analgesic

== ENCOUNTER → 2020-09-07 | Outpatient (CLI) | payer OTHER ==
[~2020-09-07] VITALS: Ht 162.6 cm; Wt 100.2 kg
[2020-09-07 10:15] VITALS: BP 106/68
--- NOTE | 2020-09-07 10:26 | NUR ---
Pain Clinic Assessment: 1. History of Osteoarthritis: BACK History of Rheumatoid Arthritis: Not Applicable 2. Height: 5 ft. 4 in. 162.6 cm. Weight: 221.0 lb. oz. 100.245 kg. Patient's BMI: 37.9 3. Vital Signs: BP: 106/68 Pulse: 65 Resp: 18 Temp: 02 Sat: 99 ECG Mon: 4. Pain Intensity: 7 5. Fall Risk: Dizziness: N Needs help standing or walking: Y Fallen in the last 3 months: N Fall risk comments: 6. Patient on Blood Thinner: None 7. History of Hypertension: Y 8. Opioid Therapy greater than 6 weeks: Opiate Contract Signed: 9. Risk Assessment Tool Provided: 0 LOW RISK 10. Functional Assessment Tool: 45/70 11. Recreational Drug Use: Current within past 3 mos Drug Type: Tobacco Use: Current Every Day Smoker Tobacco Type: Amount or Packs/day: How Many Years: Alcohol Use: Yes Frequency: Special Occasions Quant: 1
== END | disposition home or self-care (01) ==
LOC: PAIN 06:57
PROVIDERS: ATTEND Anesthesiology Pain Medicine
DX: M54.16 Radiculopathy, lumbar region (principal); G89.29 Other chronic pain; I10 Essential (primary) hypertension; H40.9 Unspecified glaucoma; G43.909 Migraine, unspecified, not intractable, without status migrainosus; Z98.890 Other specified postprocedural states; Z79.899 Other long term (current) drug therapy; Z96.653 Presence of artificial knee joint, bilateral; Z98.84 Bariatric surgery status

== ENCOUNTER → 2020-11-20 | Outpatient (CLI) | payer OTHER ==
[~2020-11-20] VITALS: Ht 162.6 cm; Wt 90.5 kg
[~2020-11-20] MED LIST changes: +KLOR-CON 10 ER10 MEQ PO; +TIZANIDINE HCL4 M1 PO
[2020-11-20 10:41] VITALS: BP 139/93
--- NOTE | 2020-11-20 10:58 | NUR ---
Pain Clinic Assessment: 1. History of Osteoarthritis: BACK History of Rheumatoid Arthritis: Not Applicable 2. Height: 5 ft. 4 in. 162.6 cm. Weight: 199.6 lb. oz. 90.538 kg. Patient's BMI: 34.2 3. Vital Signs: BP: 139/93 Pulse: 73 Resp: 20 Temp: 02 Sat: 100 ECG Mon: 4. Pain Intensity: 6 5. Fall Risk: Dizziness: N Needs help standing or walking: Y Fallen in the last 3 months: Y Fall risk comments: 6. Patient on Blood Thinner: None 7. History of Hypertension: Y 8. Opioid Therapy greater than 6 weeks: Opiate Contract Signed: 9. Risk Assessment Tool Provided: 0 LOW RISK 10. Functional Assessment Tool: 45/ 11. Recreational Drug Use: Current within past 3 mos Drug Type: marajuana Tobacco Use: Current Every Day Smoker Tobacco Type: Cigarettes Amount or Packs/day: 3-5 cigs/day How Many Years: 34 Alcohol Use: Yes Frequency: Special Occasions Quant: 6 pack/year
== END | disposition home or self-care (01) ==
LOC: PAIN 07:05
PROVIDERS: ATTEND Anesthesiology Pain Medicine
DX: M54.5 Low back pain (principal); M47.26 Other spondylosis with radiculopathy, lumbar region; I10 Essential (primary) hypertension; M19.90 Unspecified osteoarthritis, unspecified site; G43.909 Migraine, unspecified, not intractable, without status migrainosus; F17.210 Nicotine dependence, cigarettes, uncomplicated; Z98.890 Other specified postprocedural states; Z79.899 Other long term (current) drug therapy; Z90.49 Acquired absence of other specified parts of digestive tract

== ENCOUNTER → 2020-12-20 | Outpatient (CLI) | payer OTHER | LOC: RAD 12:10 | PROVIDERS: ATTEND Nurse Practitioner | DX: M51.26 Other intervertebral disc displacement, lumbar region (principal); M47.816 Spondylosis without myelopathy or radiculopathy, lumbar region; M48.061 Spinal stenosis, lumbar region without neurogenic claudication ==

== ENCOUNTER → 2020-12-25 | Outpatient (CLI) | payer OTHER | LOC: RAD 09:29 | PROVIDERS: ATTEND Nurse Practitioner | DX: M51.36 Other intervertebral disc degeneration, lumbar region (principal); M47.816 Spondylosis without myelopathy or radiculopathy, lumbar region ==

== ENCOUNTER → 2021-01-15 | Outpatient (CLI) | payer OTHER ==
[2021-01-15 08:49] LABS: PROTIME 10.9 Seconds (10.5-12.1)
--- NOTE | 2021-01-15 12:29 | NUR ---
LATE ENTRY PT HAVING SEVERE BACK PAIN DURING MYELOGRAM SO IV STARTED RT HAND 22 GAUGE AND FENTANYL 50 MCG GIVEN IV AT 1014. PT STATES PAIN MOSTLY GONE NOW. PROCEDURE COMPLETED IN CT. THEN BROUGHT TO CV HOLDING TO RECOVER AT 1045. VSS. IV DC'D. PT GIVEN THOROUGH INST. STATES HIS WILL READ THE WRITTEN PART. VERBALIZES UNDERSTANDING. DC'D PER WHEELCHAIR AT 11:30. HR 64; BP 138/81; RR 20; AND SAT 97% ON RA.
== END ==
LOC: RAD 07:26
PROVIDERS: Radiology Diagnostic Radiology; ATTEND Nurse Practitioner Adult Health
DX: M47.896 Other spondylosis, lumbar region (principal); M48.061 Spinal stenosis, lumbar region without neurogenic claudication; M54.59 Other low back pain; I10 Essential (primary) hypertension; G43.909 Migraine, unspecified, not intractable, without status migrainosus; E66.01 Morbid (severe) obesity due to excess calories; Z98.890 Other specified postprocedural states; Z79.899 Other long term (current) drug therapy; Z68.43 Body mass index [BMI] 50.0-59.9, adult; Z79.01 Long term (current) use of anticoagulants